=== PATIENT | female | born 2000 | race Caucasian/White ===

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

== ENCOUNTER 2018-02-02 18:33 | Emergency (ER) | payer OTHER ==
--- NOTE | 2018-02-02 19:12 | ED Physician Documentation ---
Skin Rash - HISTORIAN Historian: patient - HPI Stated Complaint: rash Chief Complaint: Skin Rash Onset: days ago Timing: worse Duration: worse Location: neck, RUE, LLE, other (left groin) Quality: itchy, painful Identified Cause?: No Context: Food Exposure: none Further Comments: yes (17 year old female patient presents with 2 day history of linear rash; spreading from neck to RUE, LLE and left groin. took benadryl with no improvment.) - ROS CONST: none CVS/RESP: none EYES/ENT: none GI/: none MS/SKIN/LYMPH: none NEURO/PSYCH: none - PAST HX Past History: none Other History: none Allergies/Adverse Reactions: Allergies Allergy/AdvReac Type Severity Reaction Status Date / Time venom-honey bee Allergy Verified 02/02/18 18:56 [bee venom (honey bee)] Home Medications: Ambulatory Orders Medication Instructions Recorded NK [NK] 02/02/18 - SOCIAL HX Smoking History: cigarettes - FAMILY HX Family History: denies: none - VITAL SIGNS Vital Signs: Vital Signs Temp Pulse Resp BP Pulse Ox 98.9 F 84 16 118/72 99 02/02/18 19:24 02/02/18 19:24 02/02/18 19:24 02/02/18 19:24 02/02/18 19:24 - REVIEWED ASSESSMENTS Nursing Assessment Reviewed: Yes Vitals Reviewed: Yes Progress - Progress Progress: Medicated with depo medrol for Poison Ashlee. ED Results Lab/Radiology - Orders Orders: ED Orders Category Date Time Status methylPREDNISolone ACETATE [Depo-Medrol] Med 02/02/18 19:11 Discontinued 80 mg IM NOW ONE Skin Rash Physical Exam - EXAM General Appearance: mild distress Skin: warm,dry, erythema (linear; erythematous rash) Location: posterior neck, extremities (RUE; LLE; left groin) Character: maculopapular, linear Symptoms: warmth, tenderness Extremities: non-tender, nml ROM, no edema Respiratory: no resp distress, chest non-tender, breath sounds normal CVS: reg. rate & rhythm, heart sounds nml Neuro/Psych: oriented x3, CN's nml as tested, motor nml, sensation nml, mood/ affect nml Discharge Clincal Impression: Poison ashlee Referrals: Primary Doctor,No [Primary Care Provider] - 2 Days Additional Instructions: For Itch Relief: Adding oatmeal to a bath, applying cool wet compresses, and applying~calamine lotion~may help to relieve itching Condition: Stable Disposition: 01 HOME, SELF-CARE Decision to Admit: NO Decision Time: 19:12
[2018-02-02] MEDS: methylPREDNISolone ACETATE 80 MG/ML VIAL IM ONE (19:15)
[2018-02-02 19:26] VITALS: BP 118/72
== END 2018-02-02 19:24 | disposition home or self-care (01) ==
LOC: ED 18:33
DX: L23.7 Allergic contact dermatitis due to plants, except food (principal)
CPT/HCPCS: 96372; J1040

== ENCOUNTER 2018-02-05 12:40 | Emergency (ER) | payer OTHER ==
[2018-02-05 12:50] VITALS: BP 131/97
--- NOTE | 2018-02-05 13:12 | ED Physician Documentation ---
General Adult - HISTORIAN Historian: patient - HPI Stated Complaint: Rash Chief Complaint: General Adult Additional Information: Rash sine 01/31. Seen in this ER on 02/02 and treated with Depo Medrol, claritin, for poison michael. Says her throat has been sore since. She also has persistent rash left inguinal area. Tells nurse rash at this site has gotten worse. - ROS CONST: denies: fever - PAST HX Past History: none Allergies/Adverse Reactions: Allergies Allergy/AdvReac Type Severity Reaction Status Date / Time venom-honey bee Allergy Verified 02/05/18 12:49 [bee venom (honey bee)] Home Medications: Ambulatory Orders Medication Instructions Recorded Amoxicillin 500 mg PO Q8H #30 capsule 02/05/18 - SOCIAL HX Smoking History: non-smoker - FAMILY HX Family History: No - VITAL SIGNS Vital Signs: Vital Signs Temp Pulse Resp BP Pulse Ox 98.6 F 128 H 17 131/97 99 02/05/18 12:47 02/05/18 12:47 02/05/18 12:47 02/05/18 12:47 02/05/18 12:47 - REVIEWED ASSESSMENTS Nursing Assessment Reviewed: Yes Vitals Reviewed: Yes ED Results Lab/Radiology - Orders Orders: ED Orders Category Date Time Status Rapid Strep [GRP A STREP SCREEN] Stat Lab 02/05/18 Ordered General Adult Physical Exam - PHYSICAL EXAM GENERAL APPEARANCE: quite talkative EENT: eye inspection normal, pharyngeal erythema (and post nasal drip. R tonsil> Left. Post nasal drip? ), other (no pain with palpation facial sinus areas) NECK: normal inspection (non tender), supple RESPIRATORY: no resp distress, breath sounds normal CVS: reg rate & rhythm, heart sounds normal, no murmur BACK: normal inspection SKIN: warm/dry, normal color, other (linear rash left inguinal area, left forearm) EXTREMITIES: no evidence of injury NEURO: CN's nml as tested, motor nml, sensation nml Discharge Clincal Impression: Rash Pharyngitis Qualifiers: Pharyngitis/tonsillitis etiology: unspecified etiology Qualified Code(s): J02.9 - Acute pharyngitis, unspecified Prescriptions: Amoxicillin 500 mg PO Q8H #30 capsule Referrals: Primary Doctor,No [Primary Care Provider] - 2 Days Condition: Good Disposition: 01 HOME, SELF-CARE Decision to Admit: NO Decision Time: 13:15
== END 2018-02-05 13:12 | disposition home or self-care (01) ==
LOC: ED 12:40
DX: J02.9 Acute pharyngitis, unspecified (principal); R21 Rash and other nonspecific skin eruption
CPT/HCPCS: 87070; 87880